=== PATIENT | male | born 1955 | race Caucasian/White ===

== ENCOUNTER → 2021-02-08 | Outpatient (CLI) | payer MEDICARE, OTHER ==
[~2021-02-08] MED LIST: CARV3.125 PO; CLOP75 PO; ENTRESTO 24 MG1 EACH PO; FENTANYL1 EAC7 TOP; MELATONIN5 M1 PO; MIRALAX17 GM PO; NYST237S MT; OXYC10TA19 PO; Percocet 10-321 EACH PO
[2021-02-09 08:10] LABS: HIV SCREEN 4TH GENERATION WRFX Non Reactive (Non Reactive)
[2021-02-10 06:09] LABS: HBSAG SCREEN Negative (Negative); HEP A AB, IGM Negative (Negative); HEP B CORE AB, IGM Negative (Negative)
== END | disposition home or self-care (01) ==
LOC: LAB 14:10 → LAB SHORT 14:10
PROVIDERS: Registered Nurse Oncology
DX: C34.90 Malignant neoplasm of unspecified part of unspecified bronchus or lung (principal); B19.20 Unspecified viral hepatitis C without hepatic coma
CPT/HCPCS: 80074; 87389

== ENCOUNTER → 2021-02-19 | Outpatient (CLI) | payer MEDICARE, OTHER ==
[2021-02-21 20:10] LABS: HEPATITIS C QUANTITATION HCV Not Detected IU/mL (.)
== END | disposition home or self-care (01) ==
LOC: LAB UVN 05:37 → EDSTATUS 10:50
PROVIDERS: Family Medicine
DX: Z20.9 Contact with and (suspected) exposure to unspecified communicable disease (principal)
CPT/HCPCS: 87522

== ENCOUNTER 2021-04-16 22:56 | Observation (INO) | payer MEDICARE, OTHER ==
[~2021-04-16] VITALS: Ht 182.9 cm; Wt 72.9 kg
[2021-04-16] MEDS ORDERED: ENTRESTO 24 MG1 EACH PO (23:36)
[2021-04-16] MEDS ORDERED: CLOP75 PO (23:36)
[2021-04-16] MEDS ORDERED: Percocet 10-321 EACH PO (23:37)
[2021-04-16] MEDS ORDERED: MIRALAX17 GM PO (23:38)
[2021-04-17] MEDS ORDERED: FENTANYL1 EAC7 TOP (01:17)
[2021-04-17] MEDS ORDERED: CARV3.125 PO (01:19)
--- NOTE | 2021-04-17 01:55 | NUR ---
REPORT RECIEVED FROM ADAIR STUBBS RN AND PT T/F TO ROOM 334 VIA [facility] AT 0140. PT ORIENTED TO ROOM AND CALL SYSTEM AND INSTRUCTED TO CALL FOR ASSIST OOB D/T PREVIOUS REPORTS OF SYMPTOMATIC ANEMIA: DIZZINESS, FATIGUE, LIGHTHEADEDNESS. PT AWARE TO ALERT STAFF IF THIS PERSISTS OR WORSENS. PLAN FOR 2 UNIT PRBC'S W/LASIX BTWN UNITS PER ORDERS. PT REPORTS PAIN TO R.SHOULDER AND R.UPPER LUNG LOBES. WILL ATTEMPT TO RECONCILE HOME MEDS W/HOSPITALIST TO REMEDY THIS. PT DENIES NEEDS AT THIS TIMES. HE IS A/OX3-4 BUT SEEMS MILDLY FORGETFULL W/BED ALARM ARMED FOR POSSIBLE IMPULSIVITY.
[2021-04-17] MEDS ORDERED: Percocet 10-321 EACH PO (02:14)
--- NOTE | 2021-04-17 03:50 | NUR ---
1ST UNIT PRBC'S VERIFIED W/JED ROBB AND COMMENCED AT 0343. PT AWARE OF S/S ADVERSE REACTION AND AWARE TO CALL FOR ASSIST IF ANY SYMPTOMS DEVELOP. CALL LIGHT IN REACH. BED ALARM ON. VSS/AFEBRILE.
[2021-04-17] MEDS ORDERED: ENTRESTO 24 MG1 EACH PO (03:53)
[2021-04-17] MEDS ORDERED: MELATONIN5 M1 PO (03:54)
[2021-04-17] MEDS ORDERED: NYST237S MT (03:56)
[2021-04-17] MEDS ORDERED: OXYC10TA19 PO (03:58)
--- NOTE | 2021-04-17 06:38 | NUR ---
PT TOLERATED 1ST UNIT PRBC'S W/O S/S ADVERSE REACTION. VSS AND AFEBRILE AND PT REPORTS FEELING "A LITTLE MORE MENTALLY CLEAR". IV LASIX RECIEVED PER RX BTWN BLOOD AND STAFF AWAITING 2ND UNIT PRBC'S FROM LAB.
--- NOTE | 2021-04-17 07:05 | NUR ---
2ND UNIT PRBC'S VERIFIED Reji/JED ROBB AND COMMENCED AT 0700. VSS AND PT AWARE TO ALERT STAFF OF S/S REACTION. HE VOIDED 800 MLS AFTER RECIEVING IV LASIX BETWEEN BLOOD.
--- NOTE | 2021-04-17 07:18 | NUR ---
SUMMARY: A/OX3-4, CALLS APPROPRIATELY TO SPECIFY NEEDS AND HAS BED ALARM ON FOR POSSIBLE IMPULSIVITY AND FALL RISK. PT WAS ADMITTED W/SYMPTOMATIC ANEMIA: FATIGUE, DIZZYNESS, NAUSEA AND LOSS OF APPETITE 2ND TO RECENT CHEMO. HE WAS OBSERVED TO HAVE A SLIGHTLY UNSTEADY GAIT W/GENERALIZED WEAKNESS BUT PT NEEDING AMBULATORY ASSIST AT BASELINE. HE ADMITS TO USING FWW OR W/C AT [facility] "ONLY BECAUSE IT'S REQUIRED". 1ST UNIT PRBC'S RECIEVED W/O ADVERSE EVENT THEN LASIX PROVIDED X1 PER RX. 2ND UNIT PRBC'S INFUSING AT THIS TIME AND IS TOLERATED WELL. HE C/O R.SHOULDER AND R.UPPER LUNG LOBE PAIN W/OXYCODONE RECIEVED PRN PER EMAR FOR TOLERABLE RELIEF. HE ALSO HAD DILAUDID IV PRN FOR BRIEF RELIEF WHILE PAIN MEDS WERE BEING CLARIFIED W/MD. MOIST MONITORING COORDINATOR COUGH IS NOTED AND LS ARE COARSE W/SPO2 WNL ON RA. HE'S PACED/NSR AT 80'S BPM PER TELEMETRY W/PM PRESENT TO PERLA. PT HAD SNACK PER REQUEST AND TOLERATED IT WELL W/O ANY SWALLOW ISSUES DEPSITE HX DYSPHAGIA AND D/C'D PEG TUBE. NO ACUTE CHANGES, VSS/AFEBRILE. REPORT PROVIDED TO DAY RN.
--- NOTE | 2021-04-17 08:43 | NUR ---
TELE CHANGES DESIGN TEACHERLATONIA HATFIELD CALLED TO NOTIFY THIS RN THAT PT RHYTHM IS NORMALLY PACED IN THE 80S, BUT HAS BEEN HAVING INREASING EVENT OF RHYTHM CHANGING TO SINUS IN THE 120S AND THEN BACK TO PACED. THIS RN NOTIFIED DR. MIGUEL. DR. GLYNN THINKS IT IS RELATED TO EXTRA STRESS ON THE HEART FROM THE BLOOD TRANSFUSION. DESIGN TEACHER UPDATED.
--- NOTE | 2021-04-17 09:21 | NUR ---
ENTRESTO THIS RN ENTERED PT ROOM WITH HIS ENTRESTO. EXPLAINED WHAT IT WAS FOR, PT STATES HE IS FAMILIAR WITH THIS MED, BUT NEEDED TO USE THE RESTROOM FIRST. PT WALKED TO BATHROOM, THIS RN BREIFLY LEFT ROOM WHILE PT USED THE BATHROOM. UPON RETURN PT HAD REMOVED THE ENTRESTO FROM THE BAG, OPENED THE PACKAGE, AND TOOK THE MED ON HIS OWN. PT EDUCATED THAT ALL MEDS MUCH BE ADMINISTERED BY THE RN. DR. GLYNN NOTIFIED.
[2021-04-17 11:12] LABS: BASOPHILS PERCENT AUTO 0 % (0-2); EOSINOPHILS ABSOLUTE AUTO 0.02 K/mm3 (0.00-0.68); EOSINOPHILS PERCENT AUTO 1 % (0-6); Hematocrit 24.2 % (37.0-53.0); Hemoglobin 8.1 g/dL (13.5-17.5); IMMATURE GRAN ABSOLUTE AUTO 0.03 K/mm3 (0.00-0.10); IMMATURE GRAN PERCENT AUTO 1 % (0-1); LYMPHOCYTES ABSOLUTE AUTO 0.19 K/mm3 (0.84-5.20); LYMPHOCYTES PERCENT AUTO 6 % (21-46); MONOCYTES ABSOLUTE AUTO 0.67 K/mm3 (0.16-1.47); MONOCYTES PERCENT AUTO 21 % (4-13); Mean Corpuscular HGB 32.1 pg (26.0-34.0); Mean Corpuscular HGB Conc 33.5 g/dL (31.5-36.5); Mean Corpuscular Volume 96 fL (80-100); Mean Platelet Volume 9.1 fL (9.1-12.4); NEUTROPHILS PERCENT AUTO 72 % (41-73); Platelet Count 108 K/mm3 (150-400); RDW Coefficient Variation 17.7 % (11.7-14.2); Red Blood Cell Count 2.52 M/mm3 (4.30-5.90); White Blood Cell Count 3.21 K/mm3 (4.00-11.30)
--- NOTE | 2021-04-17 15:03 | NUR ---
CARE COORDINATION REFERRAL - ADMIT: 04/17/21 DISCHARGE: DX:SYMPTOMATIC ANEMIA CC: [facility] CALL: RESIDENCE: [facility] CAREGIVER: [place], CHILD, [id number] DX: ADENOCARCINOMA R-LUNG, COPD, CHF, HTN, SEE LIST DME: NONE CCM: NONE HOME HEALTH: NONE SUMMARY: ADMIT: 04/17/21 04/17/21- PACKET FAXED TO [facility] FOR REVIEW TO RETURN TO FACILITY. PER CHART REVIEW WITH DR. GLYNN, PT IS RECEIVING 2ND BLOOD TRANSFUSION AND COULD POTENTIALLY RETURN TO SNF THIS EVENING. SPOKE WITH JASON WITH [facility], WILL NEED PACKET WITH PT NOTES TO DETERMINE IF PT NEEDS SKILL/REHAB. SHE REPORTS THAT THEY WILL NOT BE ABLE TO TAKE THE PT TODAY BUT WILL TOMORROW. -JAMI
--- NOTE | 2021-04-17 17:15 | NUR ---
SHIFT SUMMARY A/OX4. PATIENT INDEPENDENT IN ROOM. PATIENT CALLS APPROPRIATELY FOR NEEDS. PATIENT RECEIVED TWO UNITES OF BLOOD IN THE AM WITH OUT ADVERSE EVENT. PATIENT COMPLAINS OF LINGERING FATIGUE, PAIN IN SHOULDER REGION, AND LOSS OF APPETITE. NO OTHER ACUTE CHANGES THIS SHIFT. VITAL SIGNS REVIEWED.
--- NOTE | 2021-04-17 17:23 | NUR ---
NURSING STUENT DOC REVIEW THIS RN ASSESSED THE PT. THIS RN REVIEWED & AGREES WITH STAFF MINE WARFARE OFFICER'S ASSESSMENT & DOCUMENTATION FOR THIS SHIFT.
--- NOTE | 2021-04-18 03:13 | NUR ---
SHIFT SUMMARY PATIENT HAD NO ACUTE CHANGES OBSERVED. AXOX 4 AND INDEPENDENT IN ROOM. REPORTED RIGHT SHOULDER/BACK PAIN X TWO AND OXYCODONE GIVEN PER EMAR. PIV REMAINS INTACT. SHIPPING ASSOCIATE REPORTS PACED AT 79. VSS/AFEBRILE. DENIES SOB AND N/V. PATIENT REPORTS HE IS NOT VOIDING MUCH AND IS REMINDED HE IS VOIDING 200-300mL AT A TIME WITH MULTIPLE VOIDS T/O SHIFT. CALL LIGHT IN REACH. BED IN LOWEST POSITION. WILL CONTINUE TO MONITOR UNTIL DAY SHIFT NURSE ASSUMES CARE.
[2021-04-18 05:19] LABS: Hematocrit 25.3 % (37.0-53.0); Hemoglobin 8.3 g/dL (13.5-17.5); Mean Corpuscular HGB 31.6 pg (26.0-34.0); Mean Corpuscular HGB Conc 32.8 g/dL (31.5-36.5); Mean Corpuscular Volume 96 fL (80-100); Mean Platelet Volume 9.4 fL (9.1-12.4); Platelet Count 120 K/mm3 (150-400); RDW Coefficient Variation 18.1 % (11.7-14.2); Red Blood Cell Count 2.63 M/mm3 (4.30-5.90); White Blood Cell Count 3.06 K/mm3 (4.00-11.30)
[2021-04-18 05:41] LABS: Anion Gap 6 mmol/L (6-16); Blood Urea Nitrogen 10 mg/dL (8-24); Bun/Creatinine Ratio 11.8 (12.0-20.0); CO2, Blood 28 mmol/L (21-32); Calcium, Blood 8.7 mg/dL (8.5-10.1); Chloride, Blood 100 mmol/L (98-108); Creatinine, Blood 0.85 mg/dL (0.60-1.20); Glomerular Filtration Rate >60 (60-); Glucose, Blood 95 mg/dL (70-99); Potassium, Blood 3.5 mmol/L (3.5-5.5); Sodium, Blood 134 mmol/L (136-145)
[2021-04-18 05:51] LABS: BASOPHILS PERCENT MAN 0 % (0-2); EOSINOPHILS ABSOLUTE MAN 0.09 K/mm3 (0.00-0.68); EOSINOPHILS PERCENT MAN 3 % (0-6); LYMPHOCYTES ABSOLUTE MAN 0.27 K/mm3 (0.84-5.20); LYMPHOCYTES PERCENT MAN 9 % (21-46); MONOCYTES ABSOLUTE MAN 0.55 K/mm3 (0.16-1.47); MONOCYTES PERCENT MAN 18 % (4-13); NEUTROPHILS ABSOLUTE MAN 2.14 K/mm3 (1.96-9.15); SEG NEUTROPHILS PERCENT MAN 70 % (41-73); TOTAL CELLS COUNTED 100
[2021-04-18 10:42] LABS: SARS-Cov-2 (COVID-19) PCR, MMC NEGATIVE (NEGATIVE)
--- NOTE | 2021-04-18 15:29 | NUR ---
REPORT CALL[facility] TO [facility], PT IS A/OX3, APPEARS TO BE BREATHING EASILY. PT TO BE TRANSFERED VIA WHEELCHAIR, BY [facility]
--- NOTE | 2021-04-18 16:04 | NUR ---
PT DISCAHRGED THE PT WAS DISCHARGED TO [facility] VIA WHEELCHAIR, A/OX4, BREATHING EASILY ON RA, ACCOMPANIED BY [facility]
--- NOTE | 2021-04-18 16:43 | NUR ---
Update 04/18/21: Pt. accepted by [facility]. All paperwork faxed. COVID testing completed and negative. Copy of discharge orders sent with pt. to facility and transport through [facility] arranged. Discussed discharge plan with pt. Other than delay in transport, not concerns. I explained to pt. that the transportation was arranged for the soonest possible time. He stated his understanding. [facility] team will schedule pt. for F/U by either Telehealth through chronic care nurse or in office appointment.
== END 2021-04-18 15:47 ==
LOC: ER 22:56 → MEDS 22:57 → ER 04-17 00:39 → MEDS 04-17 01:40
PROVIDERS: Family Medicine; ADMIT Internal Medicine
DX: D61.810 Antineoplastic chemotherapy induced pancytopenia (principal); T45.1X5A Adverse effect of antineoplastic and immunosuppressive drugs, initial encounter; R00.0 Tachycardia, unspecified; C34.90 Malignant neoplasm of unspecified part of unspecified bronchus or lung; Z20.822 Contact with and (suspected) exposure to COVID-19; I50.20 Unspecified systolic (congestive) heart failure; I25.10 Atherosclerotic heart disease of native coronary artery without angina pectoris; E87.6 Hypokalemia; Z95.5 Presence of coronary angioplasty implant and graft; Z95.0 Presence of cardiac pacemaker; Z87.891 Personal history of nicotine dependence; Z92.21 Personal history of antineoplastic chemotherapy; Z92.3 Personal history of irradiation; Z95.1 Presence of aortocoronary bypass graft
CPT/HCPCS: 36415; 36430; 80048; 85025; 86850; 86870; 86900; 86901; 86902; 86905; 86922; 96374; 96375; 99284; A9270; G0378; J1170; J1940; J2270; J2405; J7050; P9016; U0004

== ENCOUNTER → 2021-04-16 | Outpatient (CLI) | payer MEDICARE, OTHER ==
[2021-04-16 19:46] LABS: BASOPHILS PERCENT AUTO 0 % (0-2); EOSINOPHILS ABSOLUTE AUTO 0.04 K/mm3 (0.00-0.68); EOSINOPHILS PERCENT AUTO 1 % (0-6); Hematocrit 19.3 % (37.0-53.0); Hemoglobin 6.3 g/dL (13.5-17.5); IMMATURE GRAN ABSOLUTE AUTO 0.02 K/mm3 (0.00-0.10); IMMATURE GRAN PERCENT AUTO 1 % (0-1); LYMPHOCYTES ABSOLUTE AUTO 0.28 K/mm3 (0.84-5.20); LYMPHOCYTES PERCENT AUTO 10 % (21-46); MONOCYTES ABSOLUTE AUTO 0.64 K/mm3 (0.16-1.47); MONOCYTES PERCENT AUTO 23 % (4-13); Mean Corpuscular HGB 32.6 pg (26.0-34.0); Mean Corpuscular HGB Conc 32.6 g/dL (31.5-36.5); Mean Corpuscular Volume 100 fL (80-100); Mean Platelet Volume 9.7 fL (9.1-12.4); NEUTROPHILS ABSOLUTE AUTO 1.78 K/mm3 (1.96-9.15); NEUTROPHILS PERCENT AUTO 65 % (41-73); Platelet Count 115 K/mm3 (150-400); RDW Coefficient Variation 18.3 % (11.7-14.2); RDW Standard Deviation 65.9 fL (35.1-46.3); Red Blood Cell Count 1.93 M/mm3 (4.30-5.90); White Blood Cell Count 2.76 K/mm3 (4.00-11.30)
[2021-04-16 19:59] LABS: Anion Gap 7 mmol/L (6-16); Blood Urea Nitrogen 13 mg/dL (8-24); Bun/Creatinine Ratio 14.6 (12.0-20.0); CO2, Blood 27 mmol/L (21-32); Calcium, Blood 8.6 mg/dL (8.5-10.1); Chloride, Blood 99 mmol/L (98-108); Creatinine, Blood 0.89 mg/dL (0.60-1.20); Glomerular Filtration Rate >60 (60-); Glucose, Blood 119 mg/dL (70-99); Sodium, Blood 133 mmol/L (136-145)
[2021-04-16 22:00] LABS: BASOPHILS PERCENT AUTO 0 % (0-2); EOSINOPHILS ABSOLUTE AUTO 0.03 K/mm3 (0.00-0.68); EOSINOPHILS PERCENT AUTO 1 % (0-6); Hematocrit 18.8 % (37.0-53.0); Hemoglobin 6.1 g/dL (13.5-17.5); IMMATURE GRAN ABSOLUTE AUTO 0.01 K/mm3 (0.00-0.10); IMMATURE GRAN PERCENT AUTO 0 % (0-1); LYMPHOCYTES ABSOLUTE AUTO 0.25 K/mm3 (0.84-5.20); LYMPHOCYTES PERCENT AUTO 9 % (21-46); MONOCYTES PERCENT AUTO 22 % (4-13); Mean Corpuscular HGB 32.4 pg (26.0-34.0); Mean Corpuscular HGB Conc 32.4 g/dL (31.5-36.5); Mean Corpuscular Volume 100 fL (80-100); Mean Platelet Volume 9.5 fL (9.1-12.4); NEUTROPHILS ABSOLUTE AUTO 1.79 K/mm3 (1.96-9.15); NEUTROPHILS PERCENT AUTO 67 % (41-73); Platelet Count 111 K/mm3 (150-400); RDW Coefficient Variation 18.5 % (11.7-14.2); RDW Standard Deviation 67.3 fL (35.1-46.3); Red Blood Cell Count 1.88 M/mm3 (4.30-5.90); White Blood Cell Count 2.68 K/mm3 (4.00-11.30)
== END | disposition home or self-care (01) ==
LOC: EDSTATUS 12:25 → LAB UVN 19:34
PROVIDERS: Internal Medicine
DX: C34.91 Malignant neoplasm of unspecified part of right bronchus or lung (principal); I25.10 Atherosclerotic heart disease of native coronary artery without angina pectoris; D63.0 Anemia in neoplastic disease
CPT/HCPCS: 80048; 83880; 85025

== ENCOUNTER → 2021-05-03 | Outpatient (CLI) | payer MEDICARE, OTHER ==
[2021-05-03 06:21] LABS: BASOPHILS ABSOLUTE AUTO 0.01 K/mm3 (0.00-0.23); BASOPHILS PERCENT AUTO 0 % (0-2); EOSINOPHILS ABSOLUTE AUTO 0.02 K/mm3 (0.00-0.68); EOSINOPHILS PERCENT AUTO 1 % (0-6); Hematocrit 25.4 % (37.0-53.0); Hemoglobin 8.2 g/dL (13.5-17.5); IMMATURE GRAN ABSOLUTE AUTO 0.01 K/mm3 (0.00-0.10); IMMATURE GRAN PERCENT AUTO 0 % (0-1); LYMPHOCYTES PERCENT AUTO 19 % (21-46); MONOCYTES ABSOLUTE AUTO 0.64 K/mm3 (0.16-1.47); MONOCYTES PERCENT AUTO 24 % (4-13); Mean Corpuscular HGB 30.7 pg (26.0-34.0); Mean Corpuscular HGB Conc 32.3 g/dL (31.5-36.5); Mean Corpuscular Volume 95 fL (80-100); Mean Platelet Volume 8.6 fL (9.1-12.4); NEUTROPHILS ABSOLUTE AUTO 1.53 K/mm3 (1.96-9.15); NEUTROPHILS PERCENT AUTO 56 % (41-73); Platelet Count 179 K/mm3 (150-400); RDW Coefficient Variation 15.9 % (11.7-14.2); RDW Standard Deviation 55.1 fL (35.1-46.3); Red Blood Cell Count 2.67 M/mm3 (4.30-5.90); White Blood Cell Count 2.71 K/mm3 (4.00-11.30)
== END | disposition home or self-care (01) ==
LOC: LAB UVN 06:14 → EDSTATUS 12:40
PROVIDERS: Family Medicine
DX: I50.20 Unspecified systolic (congestive) heart failure (principal); D64.81 Anemia due to antineoplastic chemotherapy; I25.10 Atherosclerotic heart disease of native coronary artery without angina pectoris; D61.818 Other pancytopenia; E87.6 Hypokalemia; Z98.890 Other specified postprocedural states
CPT/HCPCS: 85025